=== PATIENT | male | born 1950 | race Caucasian/White ===

== ENCOUNTER → 2017-03-18 | Outpatient (CLI) | payer OTHER ==
[~2017-03-18] MED LIST: AMLO1TAB12 PO; AMLO1TAB13 PO; ASP81CT PO; AVOD0.5CAP PO; CRESTOR40 MG PO; EZET1TAB16 PO; MECL25TA56 PO; MTF500T PO; MULT-850 PO; MULT-974 PO; OMG1KC PO; PNT40TEC PO; TICA90TA PO; VLS80C PO
== END ==
LOC: CARD 11:47
PROVIDERS: ATTEND Physician Assistant
DX: I25.10 Atherosclerotic heart disease of native coronary artery without angina pectoris (principal); E78.2 Mixed hyperlipidemia; I10 Essential (primary) hypertension; E11.9 Type 2 diabetes mellitus without complications
CPT/HCPCS: 93306

== ENCOUNTER → 2018-08-14 | Outpatient (CLI) | payer MEDICARE, OTHER ==
[~2018-08-14] VITALS: Ht 177.8 cm; Wt 111.1 kg
[~2018-08-14] MED LIST changes: +CATHETER FLUSH 10 ML SYR IV PRN
[2018-08-14 09:05] VITALS: BP 163/81
[2018-08-14 09:24] VITALS: BP 220/75
[2018-08-14 09:25] VITALS: BP 217/72
--- NOTE | 2018-08-14 14:48 | STRESS TEST ---
DATE OF SERVICE: 08/14/2018 EXERCISE MYOVIEW STRESS TEST REPORT Baseline heart rate is 66, baseline blood pressure of 158/77. Baseline EKG is sinus rhythm with no ischemic changes. In summary, the patient was injected with 10.81 mCi of technetium-99 Myoview and the resting images were obtained. Then, the patient started exercising with a baseline heart rate, blood pressure and EKG mentioned above. The patient was able to exercise for 5 minutes and 30 seconds on standard Jaron protocol. With peak exercise level, EKG was showing minimal nondiagnostic changes. During recovery, heart rate and blood pressure returned to baseline. EKG returned to baseline. The patient had a peak blood pressure of 223/76. The resting and stress images were reviewed and compared in the short axis, horizontal long axis, and vertical long axis views. Review of the images showed diaphragmatic attenuation with mild reversible ischemia involving the mid to apical inferior wall and inferolateral wall. SSS is 8, SDS 4, TID value 0.87. On the gated images, the left ventricle appeared to be in normal size with normal contractility. Calculated ejection fraction 62%. CONCLUSION: 1. Fair exercise tolerance, a total of 5 minutes 30 seconds on standard Jaron protocol, total of 7.1 METS achieving 90% of maximum expected heart rate. 2. Severe hypertensive response to exercise with peak blood pressure 223/76. 3. Minimal nondiagnostic EKG changes with exercise returned to baseline during recovery. 4. Diaphragmatic attenuation affecting the quality of the images. There is mild ischemia involving the mid to apical inferior wall and inferolateral wall, could be secondary to the diaphragmatic attenuation. 5. Normal left ventricular size with normal contractility. Calculated ejection fraction 62%. Job ID: [id number] DocumentID: [id number] Dictated Date: 08/14/2018 12:21:02 Bag Sealer Date: 08/14/2018 14:46:53 Dictated By: ARYA GARCIA MD
== END ==
LOC: CARD 07:09
PROVIDERS: ATTEND Physician Assistant
DX: I25.10 Atherosclerotic heart disease of native coronary artery without angina pectoris (principal); I10 Essential (primary) hypertension; E78.5 Hyperlipidemia, unspecified; E11.9 Type 2 diabetes mellitus without complications
CPT/HCPCS: 78452; 93017

== ENCOUNTER 2018-08-23 06:19 | Day surgery (SDC) | payer MEDICARE ==
[2018-08-23] VITALS (14 sets, daily range): BP systolic 114–176; BP diastolic 69–94
[~2018-08-23] VITALS: Ht 177.8 cm; Wt 111.1 kg
[~2018-08-23 06:19] MED LIST changes: -CATHETER FLUSH 10 ML SYR IV PRN
--- OUTSIDE RECORDS SUMMARY | 2018-08-23 06:23 | XMS REPORT | Continuity of Care Document ---
Author Author [facility] Organization [facility] Address Unknown Phone Unavailable Allergies Active Description Code Type Severity Reaction Onset Reported/Identified Relationship to Patient Clinical Status Yes codeine [id number] Drug Allergy Unknown N/A 11/10/2011 Medications There is no data. Problems Date Dx Coded Attending Type Code Diagnosis Diagnosed By 11/11/2011 Ot 250.00 DIAB SHAJI WO COMPL, TYPE II OR UNSPEC TY 11/11/2011 Ot 272.4 HYPERLIPIDEMIA NEC/NOS 11/11/2011 Ot 401.9 HYPERTENSION NOS 11/11/2011 Ot 414.01 CORONARY ATHEROSCLEROSIS OF [place] CORON 11/11/2011 Ot V17.49 FAMILY HISTORY OF OTHER CARDIOVASCULAR D 11/11/2011 Ot V58.66 LONG-TERM ( CURRENT) USE OF ASPIRIN 11/11/2011 Ot V58.69 OTH MED,LT, CURRENT USE 01/18/2013 AMIRA FRAGA Ot 276.51 DEHYDRATION 01/18/2013 AMIRA FRAGA Ot 780.4 DIZZINESS AND GIDDINESS 05/31/2014 RADHA JIMENEZ, ARYA Davis Ot 327.23 OBSTRUCTIVE SLEEP APNEA (ADULT) (PEDIATR 02/19/2015 TAMERA FRANK Ot 250.00 02/19/2015 TAMERA FRANK Ot 272.4 02/19/2015 TAMERA FRANK Ot 401.9 02/19/2015 TAMERA FRANK Ot 414.00 01/04/2017 TAMERA FRANK Ot 250.00 DIAB SHAJI WO COMPL, TYPE II OR UNSPEC TY 01/04/2017 TAMERA FRANK Ot 272.4 HYPERLIPIDEMIA NEC/NOS 01/04/2017 TAMERA FRANK Ot 401.9 HYPERTENSION NOS 01/04/2017 TAMERA FRANK Ot 414.00 CORON ATHEROSCLER NOS TYPE VESSEL, NATIV 01/04/2017 TAMERA FRANK Ot V72.81 [id number] CARDIOVASCULAR 01/04/2017 TAMERA FRANK K Ot 250.00 DIAB SHAJI WO COMPL, TYPE II OR UNSPEC TY 01/04/2017 TAMERA FRANK Ot 272.4 HYPERLIPIDEMIA NEC/NOS 01/04/2017 TAMERA FRANK K Ot 401.9 HYPERTENSION NOS 01/04/2017 TAMERA FRANK Ot 414.00 CORON ATHEROSCLER NOS TYPE VESSEL, NATIV 01/04/2017 TAMERA FRANK Ot V72.84 EXAM PRE-OPERATIVE NOS 01/04/2017 TAMERA FRANK K Ot 250.00 DIAB SHAJI WO COMPL, TYPE II OR UNSPEC TY 01/04/2017 TAMERA FRANK K Ot 272.4 HYPERLIPIDEMIA NEC/NOS 01/04/2017 TAMERA FRANK K Ot 401.9 HYPERTENSION NOS 01/04/2017 TAMERA FRANK K Ot 414.00 CORON ATHEROSCLER NOS TYPE VESSEL, NATIV 01/04/2017 TAMERA FRANK K Ot 250.00 DIAB SHAJI WO COMPL, TYPE II OR UNSPEC TY 01/04/2017 TAMERA FRANK K Ot 272.4 HYPERLIPIDEMIA NEC/NOS 01/04/2017 TAMERA FRANK K Ot 401.9 HYPERTENSION NOS 01/04/2017 TAMERA FRANK K Ot 414.00 CORON ATHEROSCLER NOS TYPE VESSEL, NATIV 03/16/2017 TAMERA FRANK K Ot 250.00 DIAB SHAJI WO COMPL, TYPE II OR UNSPEC TY 03/16/2017 TAMERA FRANK K Ot 272.4 HYPERLIPIDEMIA NEC/NOS 03/16/2017 TAMERA FRANK K Ot 401.9 HYPERTENSION NOS 03/16/2017 TAMERA FRANK K Ot 414.00 CORON ATHEROSCLER NOS TYPE VESSEL, NATIV 03/16/2017 TAMERA FRANK Ot V72.81 [id number]-[id number]-PILSDLCYZ CARDIOVASCULAR 03/16/2017 TAMERA FRANK K Ot 250.00 DIAB SHAJI WO COMPL, TYPE II OR UNSPEC TY 03/16/2017 TAMERA FRANK Ot 272.4 HYPERLIPIDEMIA NEC/NOS 03/16/2017 TAMERA FRANK Ot 401.9 HYPERTENSION NOS 03/16/2017 TAMERA FRANK Ot 414.00 CORON ATHEROSCLER NOS TYPE VESSEL, NATIV 03/16/2017 TAMERA FRANK Ot V72.84 EXAM PRE-OPERATIVE NOS 03/16/2017 TAMERA FRANK Ot 250.00 DIAB SHAJI WO COMPL, TYPE II OR UNSPEC TY 03/16/2017 TAMERA FRANK Ot 272.4 HYPERLIPIDEMIA NEC/NOS 03/16/2017 TAMERA FRANK Ot 401.9 HYPERTENSION NOS 03/16/2017 TAMERA FRANK Ot 414.00 CORON ATHEROSCLER NOS TYPE VESSEL, NATIV 03/16/2017 TAMERA FRANK K Ot 250.00 DIAB SHAJI WO COMPL, TYPE II OR UNSPEC TY 03/16/2017 TAMERA FRANK Ot 272.4 HYPERLIPIDEMIA NEC/NOS 03/16/2017 TAMERA FRANK Ot 401.9 HYPERTENSION NOS 03/16/2017 TAMERA FRANK Ot 414.00 CORON ATHEROSCLER NOS TYPE VESSEL, NATIV 03/18/2017 TAMERA FRANK Ot 250.00 DIAB SHAJI WO COMPL, TYPE II OR UNSPEC TY 03/18/2017 TAMERA FRANK Ot 272.4 HYPERLIPIDEMIA NEC/NOS 03/18/2017 TAMERA FRANK K Ot 401.9 HYPERTENSION NOS 03/18/2017 TAMERA FRANK K Ot 414.00 CORON ATHEROSCLER NOS TYPE VESSEL, NATIV 03/18/2017 TAMERA FRANK Ot V72.81 [id number] CARDIOVASCULAR 03/18/2017 TAMERA FRANK Ot 250.00 DIAB SHAJI WO COMPL, TYPE II OR UNSPEC TY 03/18/2017 TAMERA FRANK Ot 272.4 HYPERLIPIDEMIA NEC/NOS 03/18/2017 TAMERA FRANK K Ot 401.9 HYPERTENSION NOS 03/18/2017 TAMERA FRANK Ot 414.00 CORON ATHEROSCLER NOS TYPE VESSEL, NATIV 03/18/2017 TAMERA FRANK Ot V72.84 EXAM PRE-OPERATIVE NOS 03/18/2017 TAMERA FRANK Ot 250.00 DIAB SHAJI WO COMPL, TYPE II OR UNSPEC TY 03/18/2017 TAMERA FRANK Ot 272.4 HYPERLIPIDEMIA NEC/NOS 03/18/2017 TAMERA FRANK Ot 401.9 HYPERTENSION NOS 03/18/2017 TAMERA FRANK Ot 414.00 CORON ATHEROSCLER NOS TYPE VESSEL, NATIV 03/18/2017 TAMERA FRANK Ot 250.00 DIAB SHAJI WO COMPL, TYPE II OR UNSPEC TY 03/18/2017 TAMERA FRANK Ot 272.4 HYPERLIPIDEMIA NEC/NOS 03/18/2017 TAMERA FRANK Ot 401.9 HYPERTENSION NOS 03/18/2017 TAMERA FRANK Ot 414.00 CORON ATHEROSCLER NOS TYPE VESSEL, NATIV 04/05/2017 TAMERA FRANK Ot E11.9 TYPE 2 DIABETES MELLITUS WITHOUT COMPLIC 04/05/2017 TAMERA FRANK Ot E78.2 MIXED HYPERLIPIDEMIA 04/05/2017 TAMERA FRANK Ot I10 ESSENTIAL (PRIMARY) HYPERTENSION 04/05/2017 TAMERA FRANK Ot I25.10 ATHSCL HEART DISEASE OF [place] CORONARY 08/07/2018 TAMERA FRANK Ot 250.00 DIAB SHAJI WO COMPL, TYPE II OR UNSPEC TY 08/07/2018 TAMERA FRANK Ot 272.4 HYPERLIPIDEMIA NEC/NOS 08/07/2018 TAMERA FRANK Ot 401.9 HYPERTENSION NOS 08/07/2018 TAMERA FRANK Ot 414.00 CORON ATHEROSCLER NOS TYPE VESSEL, NATIV 08/07/2018 TAMERA FRANK Ot V72.81 AZJA-[id number]-[id number] CARDIOVASCULAR 08/07/2018 TAMERA FRANK Ot 250.00 DIAB SHAJI WO COMPL, TYPE II OR UNSPEC TY 08/07/2018 TAMERA FRANK Ot 272.4 HYPERLIPIDEMIA NEC/NOS 08/07/2018 TAMERA FRANK Ot 401.9 HYPERTENSION NOS 08/07/2018 CRISTOBAL RIVERA, TAMERA Saravia Ot 414.00 CORON ATHEROSCLER NOS TYPE VESSEL, NATIV 08/07/2018 TAMERA FRANK Ot V72.84 EXAM PRE-OPERATIVE NOS 08/07/2018 TAMERA FRANK Ot 250.00 DIAB SHAJI WO COMPL, TYPE II OR UNSPEC TY 08/07/2018 TAMERA FRANK Ot 272.4 HYPERLIPIDEMIA NEC/NOS 08/07/2018 TAMERA FRANK Ot 401.9 HYPERTENSION NOS 08/07/2018 TAMERA FRANK Ot 414.00 CORON ATHEROSCLER NOS TYPE VESSEL, NATIV 08/07/2018 TAMERA FRANK Ot 250.00 DIAB SHAJI WO COMPL, TYPE II OR UNSPEC TY 08/07/2018 TAMERA FRANK Ot 272.4 HYPERLIPIDEMIA NEC/NOS 08/07/2018 TAMERA FRANK Ot 401.9 HYPERTENSION NOS 08/07/2018 TAMERA FRANK Ot 414.00 CORON ATHEROSCLER NOS TYPE VESSEL, NATIV 08/07/2018 TAMERA FRANK Ot E11.9 TYPE 2 DIABETES MELLITUS WITHOUT COMPLIC 08/07/2018 TAMERA FRANK Ot E78.2 MIXED HYPERLIPIDEMIA 08/07/2018 TAMERA FRANK Ot I10 ESSENTIAL (PRIMARY) HYPERTENSION 08/07/2018 TAMERA FRANK K Ot I25.10 ATHSCL HEART DISEASE OF [place] CORONARY 08/11/2018 TAMERA FRANK Ot 250.00 DIAB SHAJI WO COMPL, TYPE II OR UNSPEC TY 08/11/2018 TAMERA FRANK Ot 272.4 HYPERLIPIDEMIA NEC/NOS 08/11/2018 TAMERA FRANK Ot 401.9 HYPERTENSION NOS 08/11/2018 TAMERA FRANK Ot 414.00 CORON ATHEROSCLER NOS TYPE VESSEL, NATIV 08/11/2018 TAMERA FRANK Ot V72.81 HVKT-UGE-TEEGXEWLD CARDIOVASCULAR 08/11/2018 TAMERA FRANK Ot 250.00 DIAB SHAJI WO COMPL, TYPE II OR UNSPEC TY 08/11/2018 TAMERA FRANK Ot 272.4 HYPERLIPIDEMIA NEC/NOS 08/11/2018 TAMERA FRANK Ot 401.9 HYPERTENSION NOS 08/11/2018 TAMERA FRANK Ot 414.00 CORON ATHEROSCLER NOS TYPE VESSEL, NATIV 08/11/2018 TAMERA FRANK Ot V72.84 EXAM PRE-OPERATIVE NOS 08/11/2018 TAMERA FRANK Ot 250.00 DIAB SHAJI WO COMPL, TYPE II OR UNSPEC TY 08/11/2018 TAMERA FRANK Ot 272.4 HYPERLIPIDEMIA NEC/NOS 08/11/2018 TAMERA FRANK Ot 401.9 HYPERTENSION NOS 08/11/2018 TAMERA FRANK Ot 414.00 CORON ATHEROSCLER NOS TYPE VESSEL, NATIV 08/11/2018 TAMERA FRANK Ot 250.00 DIAB SHAJI WO COMPL, TYPE II OR UNSPEC TY 08/11/2018 TAMERA FRANK Ot 272.4 HYPERLIPIDEMIA NEC/NOS 08/11/2018 TAMERA FRANK Ot 401.9 HYPERTENSION NOS 08/11/2018 TAMEAR FRANK Ot 414.00 CORON ATHEROSCLER NOS TYPE VESSEL, NATIV 08/11/2018 TAMERA FRANK Ot E11.9 TYPE 2 DIABETES MELLITUS WITHOUT COMPLIC 08/11/2018 TAMERA FRANK Ot E78.2 MIXED HYPERLIPIDEMIA 08/11/2018 TAMERA FRANK Ot I10 ESSENTIAL (PRIMARY) HYPERTENSION 08/11/2018 TAMERA FRANK Ot I25.10 ATHSCL HEART DISEASE OF [place] CORONARY 08/17/2018 TAMERA FRANK Ot E11.9 TYPE 2 DIABETES MELLITUS WITHOUT COMPLIC 08/17/2018 TAMERA FRANK Ot E78.5 HYPERLIPIDEMIA, UNSPECIFIED 08/17/2018 TAMERA FRANK Ot I10 ESSENTIAL (PRIMARY) HYPERTENSION 08/17/2018 TAMERA FRANK Ot I25.10 ATHSCL HEART DISEASE OF [place] CORONARY 08/23/2018 TAMERA FRNAK Ot 250.00 DIAB SHAJI WO COMPL, TYPE II OR UNSPEC TY 08/23/2018 TAMERA FRANK Ot 272.4 HYPERLIPIDEMIA NEC/NOS 08/23/2018 TAMERA FRANK Ot 401.9 HYPERTENSION NOS 08/23/2018 TAMERA FRANK Ot 414.00 CORON ATHEROSCLER NOS TYPE VESSEL, NATIV 08/23/2018 TAMERA FRANK Ot V72.84 EXAM PRE-OPERATIVE NOS 08/23/2018 TAMERA FRANK Ot 250.00 DIAB SHAJI WO COMPL, TYPE II OR UNSPEC TY 08/23/2018 TAMERA FRANK Ot 272.4 HYPERLIPIDEMIA NEC/NOS 08/23/2018 TAMERA FRANK Ot 401.9 HYPERTENSION NOS 08/23/2018 TAMERA FRANK Ot 414.00 CORON ATHEROSCLER NOS TYPE VESSEL, NATIV 08/23/2018 TAMERA FRANK Ot 250.00 DIAB SHAJI WO COMPL, TYPE II OR UNSPEC TY 08/23/2018 TAMERA FRANK Ot 272.4 HYPERLIPIDEMIA NEC/NOS 08/23/2018 TAMERA FRANK Ot 401.9 HYPERTENSION NOS 08/23/2018 TAMERA FRANK Ot 414.00 CORON ATHEROSCLER NOS TYPE VESSEL, NATIV 08/23/2018 TAMERA FRANK Ot E11.9 TYPE 2 DIABETES MELLITUS WITHOUT COMPLIC 08/23/2018 TAMERA FRANK Ot E78.2 MIXED HYPERLIPIDEMIA 08/23/2018 TAMERA FRANK Ot I10 ESSENTIAL (PRIMARY) HYPERTENSION 08/23/2018 TAMERA FRANK Ot I25.10 ATHSCL HEART DISEASE OF [place] CORONARY 08/23/2018 TAMERA FRANK Ot E11.9 TYPE 2 DIABETES MELLITUS WITHOUT COMPLIC 08/23/2018 TAMERA FRANK Ot E78.5 HYPERLIPIDEMIA, UNSPECIFIED 08/23/2018 TAMERA FRANK Ot I10 ESSENTIAL (PRIMARY) HYPERTENSION 08/23/2018 TAMERA FRANK Ot I25.10 ATHSCL HEART DISEASE OF [place] CORONARY Procedures There is no data. Results There is no data. Encounters ACCT No. Visit Date/Time Discharge Status Pt. Type Provider Facility Loc./Unit Complaint [id number] 08/14/2018 07:09:00 08/14/2018 23:59:59 CLS Outpatient TAMERA FRANK [facility] CARD CAD,HTN, HYPERLIPIDEMIA,NIDDM [id number] 03/23/2017 07:30:00 03/23/2017 23:59:59 CLS Preadmit TAMERA FRANK [facility] CARD CAD I25.10, HLP E78.2 [id number] 03/18/2017 11:47:00 03/18/2017 23:59:59 CLS Outpatient TAMERA FRANK [facility] CARD CAD I25.10, HLP E78.2 [id number] 01/12/2017 13:15:00 01/12/2017 23:59:59 CLS Preadmit TAMERA FRANK [facility] CARD PVC,HTN,CAD [id number] 01/12/2017 10:00:00 01/12/2017 23:59:59 CLS Preadmit TAMERA FRANK [facility] CARD PVC,HTN,CAD [id number] 01/27/2015 07:40:00 01/27/2015 23:59:59 CLS Outpatient TAMERA FRANK [facility] CARD CAD HTN HLE [id number] 01/23/2015 07:32:00 01/23/2015 23:59:59 CLS Outpatient TAMERA FRANK [facility] CARD CAD HTN HLE [id number] 05/30/2014 19:49:00 05/31/2014 07:00:00 DIS Outpatient ARYA GARCIA MD [facility] SLEEP ABNORMAL LIMB MOVEMENT , [id number] 03/14/2013 08:38:00 03/14/2013 23:59:59 CLS Outpatient TAMERA FRANK [facility] CARD CAD,HTN,HLP, DM [id number] 02/28/2013 11:22:00 02/28/2013 23:59:59 CLS Outpatient TAMERA FRANK [facility] RAD CAD,HTN,HLP, DM [id number] 01/18/2013 10:07:00 01/18/2013 16:45:00 DIS Emergency CAROLINE RIVERA, AMIRA Diaz [facility] ER DIZZINESS/SHAKEY [id number] 08/23/2018 06:19:00 ACT Outpatient ARYA GARCIA MD [facility] CATH ABN STRESS TEST,CAD,HTN,HLP [id number] 11/10/2011 11:25:00 Document Registration
[2018-08-23] MEDS ORDERED: HEParin (CATH LAB) 2,000 ML IV ONE (06:42)
[2018-08-23] MEDS ORDERED: NS IV 1000 ML 1,000 ML ONE (06:42)
[2018-08-23] MEDS ORDERED: LIDOCAINE 1% INJ 20 ML 20 ML VIAL ONE (06:42)
[2018-08-23] MEDS ORDERED: NS IV 1000 ML 1,000 ML IV SCH ×2 (06:45→09:11)
[2018-08-23 07:07] LABS: HEMOGLOBIN 14.4 G/DL (13.3-17.7); MEAN PLATELET VOLUME 9.6 FL (7.4-10.4); RED CELL DISTRIBUTION WIDTH 13.9 % (10.0-14.5); WHITE BLOOD COUNT 8.1 10^3/uL (4.3-11.0)
[2018-08-23 07:07] LABS: BILIRUBIN,URINE NEGATIVE (NEGATIVE); CLARITY,URINE CLEAR; COLOR,URINE YELLOW; GLUCOSE, URINE (UA) NEGATIVE (NEGATIVE); KETONES,URINE NEGATIVE (NEGATIVE); LEUKOCYTE ESTERASE ,URINE 1+ (NEGATIVE); NITRITE,URINE NEGATIVE (NEGATIVE); PH,URINE 6 (5-9); PROTEIN,URINE 1+ (NEGATIVE); UROBILINOGEN,URINE 1 MG/DL (NORMAL)
[2018-08-23 07:16] LABS: BACTERIA,URINE NEGATIVE /HPF; RBC,URINE RARE /HPF; SQUAMOUS EPITHELIAL CELL,UR RARE /HPF; WBC,URINE RARE /HPF
[2018-08-23] MEDS ORDERED: EZET10TA5 PO (07:16)
[2018-08-23 07:18] LABS: INR 0.9 (0.8-1.4); PROTHROMBIN TIME PATIENT 12.4 SEC (12.2-14.7)
[2018-08-23] MEDS ORDERED: fentaNYL INJECTION 100 MCG/2 ML AMP ONE (07:21)
[2018-08-23] MEDS ORDERED: MIDAZOLAM 5 MG/5 ML (VERSED) VIAL ONE (07:21)
[2018-08-23 07:25] LABS: ALANINE AMINOTRANSFERASE 26 U/L (0-55); ALBUMIN 4.3 GM/DL (3.2-4.5); ALKALINE PHOSPHATASE 66 U/L (40-136); BILIRUBIN,TOTAL 0.7 MG/DL (0.1-1.0); BUN/CREATININE RATIO 14; CALCIUM 9.4 MG/DL (8.5-10.1); CARBON DIOXIDE 23 MMOL/L (21-32); CHLORIDE 107 MMOL/L (98-107); CREATININE SERUM 1.11 MG/DL (0.60-1.30); GFR ESTIMATED > 60; GLUCOSE 118 MG/DL (70-105); POTASSIUM 3.9 MMOL/L (3.6-5.0); SODIUM 141 MMOL/L (135-145); TOTAL PROTEIN 7.3 GM/DL (6.4-8.2)
[2018-08-23] MEDS ORDERED: FLU QUADRIvalent (5+ YOA) 2018-2019 (AFLURIA) 0.5 ML IM ONE (07:45)
--- NOTE | 2018-08-23 07:46 | Diagnostic Imaging Report ---
INDICATION: Preoperative evaluation prior to cardiac catheterization, coronary artery disease. Upright portable AP view of the chest is obtained with comparison made study of 01/18/2013. FINDINGS: Heart size and pulmonary vascularity are within normal limits, and the lungs are clear, bilaterally. IMPRESSION: Unremarkable chest. Dictated by: Dictated on workstation # [id number]
--- NOTE | 2018-08-23 07:52 | Cardiac Procedure Note-CS/ASA ---
Pre-Procedure Note Pre-Op Procedure Note H&P Reviewed The H&P was reviewed, patient examined and no changes noted. Date H&P Reviewed: Aug 23, 2018 Time H&P Reviewed: 07:52 Conscious Sedation Pre-Proced Time 07:52 ASA Score 3 For ASA 3 and 4: Consider anesthesia and medical clearance. Also, for patients with a history of failed moderate sedation consider anesthesia. Airway Lungs Heart ASA score ASA 1: a normal healthy patient ASA 2: a patient with a mild systemic disease (mid diabetes, controlled hypertension, obesity X ASA 3: a patient with a severe systemic disease that limits activity (angina , COPD, prior Myocardial infarction) ASA 4: a patient with an incapacitating disease that is a constant threat to life (CHF, renal failure) ASA 5: a moribund patient not expected to survive 24 hrs. (ruptured aneurysm) ASA 6: a declared brain- patient whose organs are being harvested. For emergent operations, add the letter E after the classification Mallampati Classification Grade 3 Sedation Plan Analgesia, Amnesia, Plan communicated to team members, Discussed options with patient/fam, Discussed risks with patient/fam The patient is an appropriate candidate to undergo the planned procedure, sedation, and anesthesia. The patient immediately re-assessed prior to indication. ARYA GARCIA MD Aug 23, 2018 07:52
[2018-08-23] MEDS ORDERED: HEParin 1000 UNIT/ML (10ML VIAL) FOR BOLUS ONE (08:12)
--- NOTE | 2018-08-23 09:12 | Discharge Inst-Post CATH ---
Discharge Inst-CATH/EP Post Cardiac Cath/EP D/C Inst Follow Up/Plan Hold metformin for [address] Dorsey's office in 2-4 weeks CARDIAC CATH DISCHARGE INSTRUCTIONS *Hold Metformin for 48 hours post heart cath. ACTIVITY * Go Home directly and rest. * Limit activity of the leg (or wrist if it was used) for 7 days including aerobics, swimming, jogging, bicycling, etc. * Restrict stair-climbing for 7 days if possible, if not, climb up with your non -cath leg, then bring together on the same step. * Avoid lifting, pushing, pulling or excessive movement of the affected extremity for 7 days. * Customary sexual activity may be resumed after 2 days-use caution not to use a position that strains or causes pain to the affected extremity. * No driving for 24 hours. * NO SMOKING. * Avoid straining for bowel movements for 7 days. * Gentle walking on level ground is allowed. * Returning to work will depend on the type of procedure and the results. Your doctor will discuss this with you. CALL YOUR DOCTOR FOR ANY OF THE FOLLOWING: *If bleeding from the puncture site occurs- Apply gentle pressure to site with clean cloth and call your doctor or EMS. * If a knot or lump forms under the skin, increases in size, or causes pain. * If bruising appears to be worsening or moving further down your leg instead of disappearing. * Temperature above 101 F. CARE OF YOUR GROIN INCISION; * Bruising or purple discoloration of the skin near the puncture site is common. * You may shower only, no bathtub bathing for 5 days. Be careful to avoid slipping as your leg may feel stiff. * If a closure device was used on your femoral artery, please see the attached guide regarding care of the device and your leg. * Leave the dressing on, until removed by office staff. CARE OF YOUR WRIST INCISION; * Bruising or purple discoloration of the skin near the puncture site is common. * You may shower. * DO NOT submerge wrist. * Leave dressing on, until removed by office staff.. ARYA DORSEY MD Aug 23, 2018 09:12
[2018-08-23] MEDS ORDERED: PATIENT MAY USE OWN MEDS, ALL PO SCH (09:15)
--- NOTE | 2018-08-23 09:17 | Cardiac Cath Report ---
Cardiac Cath Report Physician (s)/Vessel Traffic Officer (s) Physician ARYA GARCIA MD Pre-Procedure Diagnosis Pre-Procedure Diagnosis: coronary artery disease Post-Procedure Note Procedure Start Date: Aug 23, 2018 Name of Procedure: left heart catheterization IVUS to LAD Findings/Procedure Note PROCEDURE NOTE: 68 years old gentleman with history of coronary artery disease, had an abnormal stress test and scheduled for cardiac catheterization next After explaining the procedure to the patient, all pros and cons were explained , all questions were answered. The patient signed the consent and then he was placed on the cardiac catheterization laboratory. Groin was prepped SL fashion local anesthesia was used. Sheath placed in the right femoral artery. Jose G right and left catheter were used to access the coronary system. Pigtail was used to access the left ventricular cavity. Left ventriculogram was not done, pressure was measured Patient was given 3000 units of heparin, FL guide was advanced to the left coronary system, BMW wire was parked distally and intravascular ultrasound was performed to the left main coronary artery, at the end of the procedure angiogram showed no complication At the end of the procedure the sheath was removed. Closure device was used FINDINGS: Hemodynamics LV 131/10, end-diastolic pressure of 10 Aorta 107/57 mean of 69 ANATOMY: Left Main has 40-50 percent ostial stenosis, multiple images were obtained then I proceeded with intravascular ultrasound evaluation which showed about 40 percent stenosis. Left Anterior Descending a slightly tortuous with mild disease nonobstructive disease Left Circumflex has mild disease nonobstructive disease Right Coronory Artery has known to have a distal stent which is patent, and the midportion there is a 50 percent stenosis nonobstructive disease CONCLUSION: 1. 40-50 percent ostial left main coronary artery stenosis confirmed by IVUS 2. Patent stent in the distal right coronary artery with 50 percent stenosis in the midright coronary artery 3. Otherwise mild coronary artery disease 4. Fluoroscopy showed calcification in the ascending thoracic aorta. DISCUSSION AND RECOMMENDATION: Continue to maximize medical therapy no intervention is needed Anesthesia Type: Conscious Sedation Estimated blood loss (mL): 25 ml Contrast Amount: 70 ml Total Radiation Dose: 1071 mGy Post-Procedure Diagnosis Post-operative diagnosis: Coronary artery disease Hypertension Hyperlipidemia Diabetes mellitus ARYA GARCIA MD Aug 23, 2018 09:17
== END 2018-08-23 15:25 | disposition home or self-care (01) ==
LOC: CATH 06:19 → SDC 09:18 → CATH 15:25
PROVIDERS: ATTEND Internal Medicine Cardiovascular Disease
DX: I25.10 Atherosclerotic heart disease of native coronary artery without angina pectoris (principal); I10 Essential (primary) hypertension; E78.5 Hyperlipidemia, unspecified; E11.9 Type 2 diabetes mellitus without complications; I65.23 Occlusion and stenosis of bilateral carotid arteries; Z82.49 Family history of ischemic heart disease and other diseases of the circulatory system; Z79.899 Other long term (current) drug therapy; Z79.84 Long term (current) use of oral hypoglycemic drugs; Z79.82 Long term (current) use of aspirin; Z95.5 Presence of coronary angioplasty implant and graft
CPT/HCPCS: 36415; 71045; 80053; 81000; 85027; 85610; 85730; 87081; 93458

== ENCOUNTER → 2020-03-06 | Outpatient (CLI) | payer MEDICARE ==
[~2020-03-06] MED LIST changes: +EZET10TA17 PO
== END ==
LOC: CARD 08:48
PROVIDERS: ATTEND Internal Medicine Cardiovascular Disease
DX: I25.10 Atherosclerotic heart disease of native coronary artery without angina pectoris (principal); I10 Essential (primary) hypertension; E78.2 Mixed hyperlipidemia; E11.9 Type 2 diabetes mellitus without complications
CPT/HCPCS: 93306